=== PATIENT | female | born 1935 | race Caucasian/White ===

== ENCOUNTER 2021-07-09 10:43 | Outpatient (CLI) | payer MEDICARE | END 2021-07-09 10:44 | disposition home or self-care (01) | LOC: CSHMAMMO 10:43 | PROVIDERS: ATTEND Family Medicine | DX: Z13.820 Encounter for screening for osteoporosis (principal); N95.9 Unspecified menopausal and perimenopausal disorder; M85.89 Other specified disorders of bone density and structure, multiple sites | CPT/HCPCS: 77080 ==

== ENCOUNTER 2022-11-26 14:03 | Outpatient (CLI) | payer MEDICARE | END 2022-11-26 14:04 | disposition home or self-care (01) | LOC: CSHULT 14:03 | PROVIDERS: ATTEND Family Medicine | DX: I34.89 Other nonrheumatic mitral valve disorders (principal); J98.4 Other disorders of lung; I34.1 Nonrheumatic mitral (valve) prolapse; I34.0 Nonrheumatic mitral (valve) insufficiency; I07.1 Rheumatic tricuspid insufficiency | CPT/HCPCS: 93306 ==